=== PATIENT | female | born 1950 | race Caucasian/White ===

== ENCOUNTER 2023-06-22 17:11 | Emergency (ER) | payer MEDICARE, SELFPAY ==
--- NOTE | 2023-06-22 17:15 | ED.EAR ---
HPI - Ear Problem General Chief complaint: Ear Stated complaint: right ear pain Time Seen by Provider: 06/22/23 17:14 Source: patient Mode of arrival: ambulatory Limitations: no limitations History of Present Illness HPI Narrative: Soumya is a 73-year-old female patient presenting to the clinic today with complaints of right sided ear pain x1 week. She reports no fever, chills, or body aches. Have some nasal congestion. Reports the pain got worse today though this prompted her to come into the clinic Related Data Home Medications Medication Instructions Recorded Confirmed hydralazine 50 mg tablet 50 mg PO DAILY 06/22/23 06/22/23 Allergies Allergy/AdvReac Type Severity Reaction Status Date / Time codeine Allergy Unknown Unknown Unverified 06/22/23 17:36 gluten Allergy Unknown Unknown Unverified 06/22/23 17:36 Penicillins Allergy Unknown Unknown Unverified 06/22/23 17:36 tetanus and diphtheria Allergy Unknown Unknown Unverified 06/22/23 17:36 toxoids ciprofloxacin Allergy Unknown Verified 06/22/23 17:36 Review of Systems Review of Systems: Pertinent positives per HPI. Patient denies any fever, chills, rash, headache, visual changes, dizziness, cough, sore throat, shortness of breath, chest pain, palpitations, nausea, vomiting, diarrhea, constipation, abdominal pain, or any urinary issues. PMFSH Comments At the time of my signature, I reviewed and agree with the nursing past medical, surgical, social, and family history. There is no relevant family history pertinent to the patient complaint. Exam Narrative: General: Well-developed, well nourished, in no apparent distress Head: Normocephalic, atraumatic Eyes: Pupils equally round and reactive to light bilaterally, EOM intact, sclera and conjunctive clear, no discharge, lids normal Ears: Right tMs intact, mild bulging, congested, left TM intact and clear, ear canals clear, no drainage, grossly hearing normal. Nose: Nares patent, clear discharge, no inflammation, no sinus tenderness. Mouth: Oropharynx without lesions or masses, good dentition, MMM. Neck: Supple, trachea midline, no enlargement of anterior or posterior cervical nodes, no thyroid masses or goiter palpable. Cardio: Regular rate and rhythm, s1 and s2 normal, no murmur appreciated. Resp: Clear to auscultation bilaterally anteriorly and posteriorly, no rhonchi, rales, wheezing or rubs Course Course Emergency Course: Portions of this record may have been created with voice recognition software. Level of Care: Express Care Visit Vital Signs Vital signs: Vital signs reviewed Medical Decision Making MDM Narrative Medical decision making narrative: At the time of visit patient is resting comfortably on the exam table. Patient appears to be nontoxic. Plan: i suspect patient has eustachian tube dysfunction. Will send in prescription for some prednisone. Supportive measures were discussed with the patient and they voiced understanding discharge instructions and agrees to treatment plan. Return precautions reviewed Differential Diagnosis Differential Diagnosis: Otitis media, otitis externa, eustachian tube dysfunction, cerumen impaction, upper respiratory infection, serous otitis Discharge Plan Discharge Clinical Impression: ETD (eustachian tube dysfunction) Qualifiers: Laterality: right Qualified Code(s): H69.91 - Unspecified Eustachian tube disorder, right ear Patient Disposition: Home, Self-Care Condition: Stable Instructions: Antibiotic Form, Earache (ED) Additional Instructions: Take any prescribed medications only as directed-prednisone Tylenol/motrin as needed for pain May use heating pad to alleviate pain If you get recurrent ear infections it may be warranted to follow up with ENT. Follow up with your PCP in 3-5 days if symptoms persist. Prescriptions: New prednisone 20 mg tablet 40 mg PO DAILY 5 Days Qty: 10 0RF No Action hy
[2023-06-22 17:28] VITALS: BP 170/99; PULSE 82; RESP 20; TEMP 36.9; O2SAT 100
== END 2023-06-22 17:42 | disposition home or self-care (01) ==
PROVIDERS: Emergency Provider Nurse Practitioner Family; PCP Family Medicine
DX: H69.91 Unspecified Eustachian tube disorder, right ear (principal); Q79.60 Ehlers-Danlos syndrome, unspecified
CPT/HCPCS: 99213; G0463